=== PATIENT | male | born 1935 | race Caucasian/White ===

== ENCOUNTER 2016-08-16 09:54 | Outpatient (CLI) | payer MEDICARE ==
--- NOTE | 2016-08-16 22:14 | RAD ---
LEFT SHOULDER THREE VIEWS 08/16/16 No acute fracture or dislocation was seen. The AC joint is normal in width. 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 A small divot is seen elisa g the superior lateral aspect of the humeral head that may be a small Hill-Sachs deformity. There is also a small bony fragment along the inferior lip of the glenoid fossa such as might be seen in a B ankart's lesion. The findings suggest the possibility of a prior dislocation. The adjacent lung is c lear. There is no periarticular calcification. IMPRESSION: 1. No acute findings. 2. Degenerative changes of the AC joint. 3. Possible prior anterior dislocation. POS: HOME
== END 2016-08-16 09:55 | disposition home or self-care (01) ==
LOC: BURRAD 09:54
PROVIDERS: ATTEND Family Medicine
DX: M25.512 Pain in left shoulder (principal)

== ENCOUNTER 2018-04-26 15:22 | Emergency (ER) | payer MEDICARE ==
[2018-04-26] MEDS ORDERED: Magnesium Citrate 300 ML BOT ONE (17:07)
== END 2018-04-26 18:09 | disposition home or self-care (01) ==
LOC: BURERS 15:22
DX: K59.00 Constipation, unspecified (principal); I10 Essential (primary) hypertension
CPT/HCPCS: 99283

== ENCOUNTER 2018-12-29 10:13 | Outpatient (CLI) | payer MEDICARE ==
--- NOTE | 2018-12-29 14:58 | RAD ---
LEFT SHOULDER: Date: 12/29/18 Left shoulder arthroplasty has been placed. I do not have prior postoperative films to compare with. No gross abnormality appreciated. There is no dislocation. No fracture seen. IMPRESSION: Unremarkable postoperative appearance. POS: HOME
== END 2018-12-29 10:14 | disposition home or self-care (01) ==
LOC: BURRAD 10:13
PROVIDERS: ATTEND Orthopaedic Surgery
DX: Z47.1 Aftercare following joint replacement surgery (principal); Z96.612 Presence of left artificial shoulder joint